=== PATIENT | male | born 1940 | race Caucasian/White ===

== ENCOUNTER → 2024-10-15 12:51 | Outpatient (REF) | payer MEDICARE, BC, SELFPAY | LOC: PAVMRI 12:51 | PROVIDERS: ATTENDING PHYSICIAN Physician Assistant; FAMILY PHYSICIAN Physician Assistant | DX: M47.816 Spondylosis without myelopathy or radiculopathy, lumbar region (principal) | CPT/HCPCS: 72148 ==

== ENCOUNTER 2025-07-27 01:34 | Inpatient (IN) | payer MEDICARE, BC, SELFPAY ==
[2025-07-26 22:34] VITALS: BP 185/88; BMI 23.7
[2025-07-26 22:40] VITALS: BP 185/88
[2025-07-26 23:00] VITALS: BP 163/72
[2025-07-27] VITALS (37 sets, daily range): BP systolic 116–187; BP diastolic 64–98; BMI 24.9
--- NOTE | 2025-07-27 00:50 | ED.GENMED ---
History of Present Illness
General
Chief Complaint: Musculo-Skeletal Complaint
Source: patient, spouse and family
Exam Limitations: none
Time Seen by Provider: 07/26/25 23:27
Nursing documentation reviewed up to this point in time: agreed with
History of Present Illness
History of Present Illness:
Note:
CHIEF COMPLAINT(S)
Ankle injury with possible fractures
HISTORY OF PRESENT ILLNESS
The patient is an 85-year-old male who reported sustaining an injury to his ankle after stepping on a box and twisting his ankle. This happened while he was leaving the bathroom. The patient described the event as causing his ankle to bend in the
opposite direction. He currently experiences significant pain, rating it at a level six when the ankle is moved. The patient conveyed understanding that his injury involved a fracture, noting that 'a break and a fracture is the same.' The doctor
explained that there are indications of a trimalleolar fracture and anterior subluxation of the ankle. The attending physician plans to administer sedation using propofol in order to realign the bone and apply a splint as a temporary measure until
the patient can undergo orthopedic surgery. The importance of maintaining blood flow and proper alignment to avoid complications was emphasized.
PAST MEDICAL AND SURIGICAL HISTORY
The patient mentions having undergone a colonoscopy with anesthesia but has no history of major surgeries or general anesthesia. Recently, he had an epidural for back pain, which he noted provided relief.
ADDITIONAL HISTORY OBTAINED FROM SOURCES OTHER THAN THE PATIENT
Per accompanying individuals, there is a consideration of admitting the patient for surgery due to his age and the logistics of transport.
SOCIAL DETERMINANTS AFFECTING HEALTH
The patient is retired, which may impact his activities of daily living following the injury.
PHYSICAL EXAM
General: Alert, no acute distress.
Skin: Warm, dry.
Head: Normocephalic, atraumatic.
Neck: Supple, trachea midline.
Eye Ears, nose, mouth and throat: Oral mucosa moist.
Cardiovascular: Normal peripheral perfusion, No edema.
Respiratory: Respirations are non-labored.
Gastrointestinal: Abdomen nondistended.
Back: Normal range of motion, Normal alignment.
Musculoskeletal: Noted injury and pain in the ankle region, otherwise normal ROM and strength in other areas.
Neurological: Alert and oriented to person, place, time, and situation, No focal neurological deficit observed.
Psychiatric: Cooperative, appropriate mood & affect.
PROBLEM LIST
Acute:
- Trimalleolar fracture with anterior subluxation of the ankle
- Ankle pain and swelling
PLAN
- Sedation with propofol for ankle reduction and splint application.
- Post-procedure follow-up x-ray to assess alignment.
- Coordination with orthopedic surgery for operative planning.
- Possible admission for surgical intervention based on consultation with orthopedics.
- Pain management and observation for any vascular complications post-reduction.
DIFFERENTIAL DIAGNOSIS
The Differential Diagnosis includes, in no particular order and is not limited to:
- Trimalleolar fracture-successfully reduced
- Bimalleolar fracture
- Ankle dislocation
- Tibial fracture
- Fibular fracture
- Ankle sprain
- Osteoarthritis exacerbation
- Gout affecting the ankle joint
- Severe contusion to the ankle
- Ligamentous injury in the ankle
Disposition:
SUMMARY OF ENCOUNTER
The patient, an 85-year-old male, presented with an ankle injury, specifically a trimalleolar fracture with associated anterior subluxation. The fracture was successfully reduced in the emergency department. Sedation was administered using propofol
to facilitate the procedure. The patient tolerated the reduction well. Due to the complexity of the fracture and the patients age, admission to the hospital service was considered necessary for further management and to coordinate care for eventual
orthopedic surgery.
DISPOSITION
Admit
ASSESSMENT
The patient sustained a trimalleolar fracture with anterior subluxation of the ankle, which was successfully reduced in the emergency department.
EMERGENCY TREATMENTS ADMINISTERED
Sedation with propofol for ankle reduction.
MANAGEMENT OF THE PATIENTS CARE WAS DISCUSSED WITH
Orthopedic surgery team.
PLAN
The patient will be admitted for further evaluation and management by the orthopedic team and for eventual surgical intervention.
PROCEDURES
Ankle reduction performed under sedation with propofol.
PATIENT EDUCATION AND COUNSELING
The patient was educated on the nature of the injury, the need for surgical intervention, and the importance of hospitalization for further management.
MEDICATION RECONCILIATION
Sedation with propofol was administered for the procedure.
MEDICAL DECISION MAKING
-Complexity of Data Reviewed: Chronic conditions affecting care include consideration of the patients age and recent epidural administration. Differential Diagnoses: Trimalleolar fracture, Bimalleolar fracture, Ankle dislocation, Tibial fracture,
Fibular fracture, Ankle sprain, Osteoarthritis exacerbation, Gout affecting the ankle joint, Severe contusion to the ankle, Ligamentous injury in the ankle.
-Data:
Category 1
External records reviewed: I reviewed the patients outpatient pharmacy records and noted the correction of the trimalleolar fracture. Clinical information was obtained from an independent historian. My independent interpretation of radiology
indicates a trimalleolar fracture with associated anterior subluxation.
Category 3
Discussion of management with the orthopedic surgery team, leading to the decision to admit the patient for further care.
DIAGNOSIS
Trimalleolar fracture with anterior subluxation of the ankle (ICD-10: S82.851A).
Phy Exam
Physical Exam
Physical Exam:
.
Course
Orders/Labs/Results
Orders:
Orders
07/26/25 22:53
CR Ankle - Right Min 3 Views * Urgent
Reason For Exam: deformity
07/26/25 23:48
Propofol [Diprivan] 20 ml .ROUTE .STK-MED
07/26/25 23:55
Propofol [Diprivan] 20 ml .ROUTE .STK-MED
07/27/25 00:22
CR Ankle - Right 2 Views Urgent
Comment:
Reason For Exam: REDUCTION
07/27/25 01:19
Admit/Transfer Patient As Directed
Co-Sign Provider:
Level of Care: Inpatient admission
Assign to:: Medical/Surgical
Physician / Group: Juan Carlos
Diagnosis: R trimalleolar fracture
Reason for Hospitalization: ambulatory dysfunction
Expected length of stay greater than two midnights?: Yes
ELOS- Estimated Length of Stay in days: 2
I certify the patient meets the requirements for IP care: Yes
Code Status As Directed
Resuscitation Status: Full Code
PRN Pain Medication Management As Directed
May give lesser potent ordered pain med per pt: Yes
preference::
Protocol:: Medication orders for pain may be administered in a
manner that supports deferring to patient preference
when the pt is:
- Requesting an ordered lesser potent pain medication.
Least to most potent pain medications are defined
as: acetaminophen < NSAID < tramadol < opioids
(morphine, oxycodone, hydromorphone).
- Requesting a lesser dose of the same medication IF
ORDERED.
- Requesting a less intrusive route of administration
if both routes are prescribed by the provider (PO <
IV).
07/27/25 02:56
HYDROmorphone [Dilaudid] 0.25 mg IV Q1HPRN PRN
Lactated Ringers [Lr] 1,000 ml IV 80 mls/hr
Magnesium Hydroxide [Milk of Magnesia] 30 ml PO DAILYPRN PRN
Oxycodone [Roxicodone] 5 mg PO Q4HPRN PRN
07/27/25 02:56
ORTHOPEDIC CONSULT Routine
Consulting Provider: Jayro Hardin
Was physician already notified: Yes
Reason for consult: R trimalleolar fracture
Activity As Directed
Activity Level: Bedrest
Bladder Scan As Directed
Follow Bladder Retention/Intermittent Cath Algorithm?: Yes
PRN if no void in __ hours: 6
Comment: if not voiding 6 hrs upon arrival to floor, bladder scan & follow algorithm
Intake/ Output As Directed
Frequency: Per unit guidelines
Pneumatic Compression Sleeves As Directed
Type: Knee high
Comment: apply to left leg
Straight Cath As Directed
Frequency: Per Retention Algorithm
Additional Instructions: straight cath as needed per acute urinary retention algorithm for 24 hrs
Additional Instructions: for bladder scan greater than 400 mL
Vital Signs As Directed
Frequency: Per unit guidelines
Weight Bearing Status As Directed
Weight bearing to: Right lower extremity
Type: Non Wt. bearing
DX Deep Vein Thrombosis Video Routine
07/27/25 04:00
Acetaminophen [Tylenol] 650 mg PO Q4HWA
07/27/25 Breakfast
NPO
Allow oral meds: Yes
Allow clear liquids: Sips of Clears
07/27/25 07:30
Sucralfate [Carafate] 1 gram PO ACHS
07/27/25 07:35
Basic Metabolic Panel IN AM
Complete Blood Count/With Diff IN AM
Magnesium IN AM
Prothrombin Time IN AM
07/27/25 08:00
Alprazolam [Xanax] 0.25 mg PO QID
Pantoprazole [Protonix] 40 mg PO DAILY
Tamsulosin [Flomax] 0.4 mg PO DAILY
07/27/25 20:00
Docusate Sodium [Colace] 100 mg PO BID
Sennosides [Senokot] 17.2 mg PO BID
Vital Signs
Initial and Last Documented VS:
Initial Vital Signs
Temp Pulse Resp BP
98 F 83 18 185/88
07/26/25 22:34 07/26/25 22:34 07/26/25 22:34 07/26/25 22:34
Last Documented Vital Signs
Temp Pulse Resp BP Pulse Ox
98.2 F 72 16 135/75 94
07/28/25 15:00 07/28/25 15:00 07/28/25 15:00 07/28/25 15:00 07/28/25 15:00
Procedures
Moderate Sedation
ASA Risk Score: Class II
Chart and allergies reviewed: Yes
Consent for anesthesia obtained: Yes
Time out completed (validating right patient & procedure): Yes
Moderate Sedation Start Time(when first medication is given): 12:08
History of difficult intubation: No
Airway free of obstruction: Yes
Patient has a gag reflex: Yes
Patient is able to open mouth: Yes
Patient has no dentures: Yes
Patient has no loose teeth: Yes
Medication administered by Provider during Moderate Sedation: IV Propofol (mg)
Total dose administered: 50
Time drug administered: 12:08
Moderate Sedation Procedure End Time: 00:23
Joint/Fracture Reduction
Right Ankle:
Indication for procedure:: Fracture dislocation of right ankle
Procedure completed by: Myself
Consent form signed: Yes
Joint reduced: with anesthesia sedation
Injury was: closed
Further treatement: needs further treatment
Post reduction exam: stable
Capillary Refill: normal
*Pulse Oximetry
SaO2: 97
Oxygen Mode of Delivery: Room air
Patient hypoxic: no
*Critical Care Note
Total Time (30-74mins, 75-104mins- exclusive of procedures): Not Applicable
Update Note
Update Note:
Trimalleolar fracture successfully reduced with the assistance of the PA under my direct and constant supervision.
ED Attending Note
-
Portions of this chart may have been created with voice recognition software.� Occasional wrong word or��sound alike� substitutions may have occurred due to the inherent limitations of voice recognition software.
Discharge Plan
Departure
Patient Disposition: Admit
Date of Disposition: 07/27/25
Time of Disposition: 00:52
Admit to: Telemetry
Presentation/result/management discussed w/ accepting MD/DO: Hospitalist
Discharge Problem:
Closed trimalleolar fracture of ankle, Moderate sedation
Interventions
Interventions:
*Risk Screen - Suicide Last Done: 07/26/25 22:34
*General Assessment Last Done: 07/26/25 22:34
*Neglect/Abuse Screening Last Done: 07/26/25 22:34
*ED- Fall Risk Assessment Last Done: 07/26/25 22:34
*ED COVID-19 Vaccine History Last Done: 07/27/25 03:15
*ED Influenza Vaccine History Last Done: 07/26/25 22:34
*Nursing Disposition Last Done: 07/27/25 02:52
ED-Musculoskeletal Assessment Last Done: 07/26/25 22:57
Discharge Date and Time
Discharge Date/Time: 07/27/25 02:53
--- NOTE | 2025-07-27 01:00 | HPS.HSE ---
Family Physician
-
Family Physician: Audrey Torres
Chief Complaint
-
Right leg injury
History of Present Illness
This is a 85-year-old with past medical history significant for proximal atrial fibrillation on anticoagulation with Xarelto, chronic back pain, BPH, GERD presenting to the emergency department after suffering a right ankle injury.
Patient was stepping out of his bathroom and then stepped on a box that he thought was solid but was not he ended up twisting his ankle and developing severe pain and swelling. He was brought into the emergency department for evaluation.
In the emergency department patient was afebrile, blood pressure 161/80 with a pulse of 65 he was satting 96% on room air. X-ray shows a right-sided trimalleolar fracture. This was successfully reduced in the emergency department and patient is
placed in a cast.
Medical History
Past Medical History
Past Medical History: Reports Arrhythmia (Paroxysmal atrial fibrillation), GERD and Psychiatric (Anxiety)
Past Surgical History: Reports Other
Social History
Tobacco: Non-smoker
Alcohol: None
Drug: None
Personal:
Living: With Family
Employment: Retired
Family History
Family History: Not pertinent
Allergies / Home Medications
Allergies reflects when Allergies were last updated in [facility].
Home Medications with original date entered in [facility]
Allergy/Medication List:
Xarelto 15 MG 1 tablet with food Orally Once a day Active
Protonix 40 MG 1 packet mixed with apple juice or applesauce Orally Once a day Active
Atorvastatin 10 mg tablet, 10 mg p.o. at bedtime
Alprazolam 0.25 mg tablets, 0.25 mg p.o. 4 times daily
Review of Systems
-
Constitutional: Reports No Symptoms
EENT: Reports No Symptoms
Respiratory: Reports No Symptoms
Cardiac: Reports No Symptoms
Abdomen/GI: Reports No Symptoms
: Reports No Symptoms
Musculoskeletal: Reports Joint Pain and Joint Swelling
Skin: Reports No Symptoms
Neurological: Reports No Symptoms
Endocrine: Reports No Symptoms
Hematologic/Lymphatic: Reports No Symptoms
Psych: Reports No Symptoms
Physical Exam
Vital Signs
Vital Signs
Temp Pulse Resp BP Pulse Ox
98.3 F 65 18 161/80 97
07/27/25 00:30 07/27/25 00:37 07/27/25 00:37 07/27/25 00:37 07/27/25 00:54
Physical Exam
General: Well Developed, Well Nourished and No Apparent Distress
HEENT: NormoCephalic, Moist mucous membranes and Atraumatic
Respiratory: Clear
Cardiac: S1/S2 and Regular Rhythm; No Murmur or Rub
GI: Soft, Non Tender, Non Distended and Normal Bowel Sounds; No Organomegaly
Rectal: Deferred by Provider
Musculoskeletal: No Clubbing, No Cyanosis, No Edema and Other (Right ankle and stabilizing cast. Pulses intact. Normal capillary refill.)
Skin: No Rash
Neuro: Nonfocal/grossly intact
Hematologic/Lymphatic: No Lymphadenopathy
Data Reviewed
-
Diagnostic Radiology: Image Personally Visualized and interpreted
Impression/Plan
-
IMPRESSION:
85-year-old with a history of paroxysmal atrial fibrillation on anticoagulation who presents with ankle injury after inadvertently stepping on a box and is found to have right-sided closed trimalleolar fracture status post reduction successfully.
PLAN:
Trimalleolar fracture
-Admit to MedSurg
-Pain control
-Hold Xarelto for today, last dose of Eliquis was today, previous to that the patient reported that he has been off Xarelto for last 3 days due to get an epidural on Friday
-Nonweightbearing pending orthopedic evaluation
-Orthopedic consulted and aware
-Obtain labs in a.m.
-NPO for now pending Ortho evaluation, d/w Dr. Hardin possible OR tomorrow but less likely given packed schedule
-PT, INR, chemistries and CBC in a.m.
- PT consult
Atrial fibrillation -patient with steady rate control
-Hold Xarelto for now
-And no need for rate control and patient's not taking any at home
-GERD
- continue Protonix daily
- Continue Carafate
BPH
- Continue tamsulosin
Anxiety
- Continue alprazolam 0.25 4 times daily
CODE STATUS�full code
[2025-07-27] MEDS: LR 1000 IV ×2 (03:59→18:18)
[2025-07-27] MEDS: TYLENOL 650 MG PO ×3 (03:59→17:28)
--- NOTE | 2025-07-27 04:00 | PTCARENOTE ---
Received patient from ED via stretcher. Patient pulled over from stretcher to bed, NWB to RLE. AAOx3, reports 2/10 burning pain to R ankle. Scheduled tylenol given. Oriented patient to room and placed call davies within reach.
--- NOTE | 2025-07-27 07:52 | CON.ORTHO ---
Consultation
-
Date/Time Consultation Requested: 07/27/2025; time unknown
Date/Time Consultation Performed: 07/27/2025l; 0715
Requesting Provider: Unknown
Performing Provider: Svaana Wheeler PA-C for Dr. Jayro Hardin
Reason for Consultation: Right trimalleolar ankle fracture
Consultation - Orthopedics
History
Mr. Metzger is an 85 year old male with PMH of atrial fibrillation on anticoagulation with Xarelto, chronic back pain, BPH, GERD seen today for his right ankle. He reports he was going to the bathroom and didn't see a box that he had left out for his
cats. He reports he tripped on the box and rolled his ankle. He reports he noticed immediate pain and deformity about the ankle, and was unable to bear weight. This prompted him to be seen at ED. X-rays revealed a trimalleolar ankle fracture
dislocation. This was successfully reduced and splinted in the emergency department. He is resting comfortably in bed this morning, and denies any significant pain at present. He denies pain elsewhere.
He lives independently at home. He reports he typically ambulates without assistance at baseline. He denies PMH of DVT, CVA, TX or DM. He denies past surgical history and denies any known family history of difficulty with anesthesia.
Allergies / Home Medications
Allergy/AdvReac Type Severity Reaction Status Date / Time
No Known Allergies Allergy Unverified 07/27/25 03:46
Vital Signs / Lab Results
Temp Pulse Resp BP Pulse Ox
98.2 F 60 24 162/75 98
07/27/25 03:00 07/27/25 04:04 07/27/25 03:00 07/27/25 04:04 07/27/25 04:00
XR of the right ankle reveals a trimalleolar fracture dislocation.
Repeat x-rays reveals successful reduction and splinting of ankle fracture dislocation.
Directed exam of the right lower extremity reveals splint in place. Good color and warmth of toes. Patient able to wiggle toes. Sensation intact to light touch above and below splint.
Assessment / Plan
Right trimalleolar ankle fracture
--Unfortunately, Binu sustained a trimalleolar fracture dislocation. The dislocation was successfully reduced in the emergency department, but given the unstable nature of his injury I recommend proceeding with open reduction internal fixation of
his fracture. The risks, benefits, alteratives, recovery process and potential complications were discussed in detail. He verbalized understanding and would like to proceed with surgery. Surgical and blood consent signed and placed on patient chart.
We are hoping to proceed with OR today pending OR availability.
--NPO for now pending OR availability.
--Maintain splint to RLE. NWB to RLE until surgery.
--Pain control prn.
--Ice and elevation for pain and edema control.
--Orthopedics will continue to follow along.
[2025-07-27] MEDS: XANAX 0.25 MG PO ×4 (07:59→21:31)
[2025-07-27] MEDS: PROTONIX 40 MG PO (08:00)
[2025-07-27] MEDS: CARAFATE 1 GRAM PO ×4 (08:00→21:31)
[2025-07-27 08:03] LABS: Hematocrit 37.3 % (39.0-52.0); Hemoglobin 12.7 g/dL (13.0-18.0); Mean Corp Hgb Conc. 34.0 g/dL (33.0-37.0); Mean Corpuscular Volume 90.1 fL (80.0-94.0); Nucleated Red Blood Cells % 0 % (-); Platelet Count 172 10^3/uL (130-400); Red Cell Dist. Width 15.8 % (11.5-14.5)
[2025-07-27 08:14] LABS: INR 1.68; PT 20.3 Sec (11.4-14.6)
[2025-07-27 08:37] LABS: Blood Urea Nitrogen 30 mg/dl (9-20); Calcium 8.9 mg/dl (8.4-10.2); Carbon Dioxide 22 mmol/L (22-30); Chloride 110 mmol/L (98-107); Estimated Creatinine Clearance 35 ml/min; Glucose 110 mg/dl (70-99); Magnesium 1.9 mg/dl (1.6-2.3); Potassium 4.0 mmol/L (3.5-5.1); Sodium 140 mmol/L (135-145); eGFR 44.78
[2025-07-27] MEDS: FLOMAX 0.4 MG PO (12:07)
[2025-07-27] MEDS: TYLENOL PO ×3 (12:11→23:13)
[2025-07-27] MEDS: ROXICODONE 10 MG PO ×2 (12:19→19:51)
[2025-07-27] MEDS: APRESOLINE 10 MG IV (12:20)
--- NOTE | 2025-07-27 12:22 | W.PN.UPDATE ---
Update Note
Progress Note Update
Nonbillable note
1. Right ankle trimalleolar fracture -orthopedic surgery evaluated and patient plan to be taken to the OR for surgical fixation. Pain medication adjusted. Patient benefits of surgery outweighs the risk and appropriate for surgery. No current
active cardiopulmonary complaints
2. Paroxysmal atrial fibrillation -history of ablation 2 years back. Follows up with [facility]. Routine preoperative EKG has been ordered. Patient takes Xarelto at home, currently on hold okay to be resumed postsurgery after
orthopedic cleared
--- NOTE | 2025-07-27 15:07 | CM ---
IA completed with the assistance of . Lives with in apartment [place]. Independent in ADLs and IADLs. No hx of HH, SNF or home O2. Has DME: standing walker, SPC, lightweight wheelchair at home but looking for a more
sturdy chair for his post-op experience. NO insecurities identified. Confirmed PCP, Rx , insurance, and drug coverage.
Having surgery for ankle fracture today
PCP: Irene Torres
Rx: [facility]
Plan: TBD post - op
[2025-07-27] MEDS: ANCEF 5 IV ×2 (18:16→23:12)
[2025-07-27] MEDS: XARELTO 15 MG PO (18:17)
--- NOTE | 2025-07-27 18:49 | PTCARENOTE ---
pt transferred from OR. Pt AAOx3 and pleasant. No c/o pain. Right popiteal pulse is palpable, good sensation and movement to R toes. Leg elevated on pillows. safety measures in place, call davies within reach.
[2025-07-27] MEDS: SENOKOT PO (19:54)
[2025-07-27] MEDS: COLACE PO (19:54)
[2025-07-28] VITALS (7 sets, daily range): BP systolic 129–165; BP diastolic 66–106; PULSE 84; O2SAT 96
[2025-07-28] MEDS: TYLENOL PO ×5 (05:08→20:01)
[2025-07-28] MEDS: LR 1000 IV (06:20)
--- NOTE | 2025-07-28 07:42 | W.PN.ORTHO ---
Today's Communication / Plan
-
PT/OT
Splint in place right lower extremity at all times
Strict nonweightbearing right lower extremity
Ice with elevation above level of heart to control swelling and pain
Follow-up in orthopedic office 2 weeks postop for skin clip removal and x-ray
Patient is orthopedically stable for discharge today
Orthopedics to sign off for now
Assessment
.
Distal Motor Intact: Yes
Dressing:
Splint clean, dry and intact.
Plan
.
Surgery / Date: ORIF trimalleolarfx 07/27 Ritting
DVT Prophylaxis: Other (Xarelto)
Activity:
Out of bed.
PT/OT
Discharge Plan: Home and Home w/ VN
Subjective
.
.:
Patient resting comfortably.
Vital Signs and Labs
.
Vital Signs and Labs:
Temp Pulse Resp BP Pulse Ox
98.6 F 74 18 129/66 96
07/28/25 03:19 07/28/25 03:19 07/28/25 03:19 07/28/25 03:19 07/28/25 03:19
PT 20.3 Sec (11.4-14.6) H 07/27/25 07:35
INR 1.68 07/27/25 07:35
[2025-07-28] MEDS: CARAFATE 1 GRAM PO ×4 (08:16→21:22)
[2025-07-28] MEDS: XANAX 0.25 MG PO ×4 (08:17→21:22)
[2025-07-28] MEDS: PROTONIX 40 MG PO (08:17)
[2025-07-28] MEDS: SENOKOT 17.2 MG PO (08:19)
[2025-07-28] MEDS: COLACE 100 MG PO (08:19)
[2025-07-28 08:23] LABS: Hematocrit 34.9 % (39.0-52.0); Hemoglobin 12.1 g/dL (13.0-18.0)
[2025-07-28] MEDS: ROXICODONE 10 MG PO ×2 (08:25→12:30)
[2025-07-28 08:43] LABS: Blood Urea Nitrogen 24 mg/dl (9-20); Calcium 8.5 mg/dl (8.4-10.2); Carbon Dioxide 23 mmol/L (22-30); Chloride 109 mmol/L (98-107); Estimated Creatinine Clearance 37 ml/min; Glucose 118 mg/dl (70-99); Potassium 4.1 mmol/L (3.5-5.1); Sodium 137 mmol/L (135-145); eGFR 48.65
[2025-07-28] MEDS: FLOMAX 0.4 MG PO (11:51)
--- NOTE | 2025-07-28 14:41 | W.PN.HOSP.TC ---
Today's Communication/Plan
-
d/c planning for rehab
Assessment / Plan
Assessment / Plan
Right ankle Trimalleolar fracture
-s/p ORIF by ortho on 07/27
-patient to f/u in office in 2 weeks
-maintain on pain meds
-awaiting PT evaluation and possibly will need rehab placement
Paroxysmal Atrial fibrillation
h/o of ablation
-resumed back on xarelto
-not on rate control medication
-GERD
- continue Protonix daily
- Continue Carafate
BPH
- Continue tamsulosin
Anxiety
- Continue alprazolam 0.25 4 times daily
CODE STATUS�full code
Anticipated Discharge: Within 24 hours
Subjective/Interval History
-
Date of Service: July 28, 2025
no complains overnight
denies having chest pain/shortness breath
not constipated
Objective Data
-
Labs:
Laboratory Results
07/28/25
07:56
Hgb 12.1 L
Hct 34.9 L
Sodium 137
Potassium 4.1
Chloride 109 H
Carbon Dioxide 23
BUN 24 H
Creatinine 1.4 H
Glucose 118 H
Calcium 8.5
Vital Signs:
Vital Signs
Temp Pulse Resp BP Pulse Ox
98.1 F 84 18 158/85 96
07/28/25 11:00 07/28/25 11:00 07/28/25 11:00 07/28/25 11:00 07/28/25 11:00
I&O
07/27/25 07/28/25 07/29/25
06:59 06:59 06:59
Intake Total 240 / 240 315 / 315
Output Total 295 / 295 700 / 700
Balance -55 / -55 -385 / -385
Review of Systems
-
Respiratory: Reports No Symptoms
Cardiac: Reports No Symptoms
Abdomen/GI: Reports No Symptoms
Physical Exam
-
General: No Apparent Distress and Comfortable
HEENT: Negative Oxygen
GI: Soft and Nontender
Neuro: Awake, Alert, Oriented, No Motor Deficits and Nonfocal/Grossly Intact
Psych: Calm
--- NOTE | 2025-07-28 15:44 | CM ---
Acute rehab referral sent via [facility].
[2025-07-28] MEDS: ROXICODONE 5 MG PO ×2 (17:03→21:25)
[2025-07-28] MEDS: XARELTO 15 MG PO (17:04)
--- NOTE | 2025-07-28 17:15 | CM ---
IMM given. Post-op pain management ongoing.
PT and OT recommend acute rehab. Discussed levels of care provided at acute rehab vs, SNF vs HH vs O/P therapy. given SNF resources to review and select 3-5 facilities iin the event the pt doesn't qualify for acute Rehab.
Plan: acute rehab vs snf
[2025-07-28] MEDS: SENOKOT PO (20:01)
[2025-07-28] MEDS: COLACE PO (20:01)
[2025-07-29] MEDS: TYLENOL PO ×2 (00:19→05:28)
[2025-07-29] MEDS: ROXICODONE 5 MG PO ×5 (02:49→22:22)
[2025-07-29] MEDS: MILK OF MAGNESIA 30 ML PO (02:52)
[2025-07-29 07:41] VITALS: BP 178/88
[2025-07-29] MEDS: CARAFATE 1 GRAM PO ×4 (07:57→21:04)
[2025-07-29] MEDS: COLACE 100 MG PO ×2 (08:42→20:22)
[2025-07-29] MEDS: SENOKOT 17.2 MG PO ×2 (08:42→20:22)
[2025-07-29] MEDS: TYLENOL 650 MG PO ×4 (08:42→20:22)
[2025-07-29] MEDS: XANAX 0.25 MG PO ×4 (08:42→21:04)
[2025-07-29] MEDS: PROTONIX 40 MG PO (08:42)
--- NOTE | 2025-07-29 10:47 | CM ---
Reviewed Chart. Met with pt and bedside; Informed them that the pt was denied acute rehab to [facility]. and pt provided the following SNF choices for SNF referrals in order of priority: [facility], [facility], [facility] and [facility].
[facility] to [facility]. Pt has only been here for 2 days. If bed is available today, pt will have to private pay for SNF care. Referrals sent.
Plan: TBD
[2025-07-29] MEDS: DULCOLAX 10 MG PO (11:20)
--- NOTE | 2025-07-29 12:20 | W.PN.HOSP.TC ---
Addendum entered and electronically signed by Ulises Coffey MD 07/30/25 17:26:
Add on to diagnosis list
CKDIIIA
Original Note:
Today's Communication/Plan
-
d/c planning for snf rehab
Assessment / Plan
Assessment / Plan
Right ankle Trimalleolar fracture
-s/p ORIF by ortho on 07/27
-patient to f/u in office in 2 weeks
-maintain on pain meds
-awaiting PT evaluation and possibly will need rehab placement
Paroxysmal Atrial fibrillation
h/o of ablation
-resumed back on xarelto
-not on rate control medication
-GERD
- continue Protonix daily
- Continue Carafate
BPH
- Continue tamsulosin
Anxiety
- Continue alprazolam 0.25 4 times daily
Narcotic induced constipation
- Dulcolax ordered
- Will need to use suppository if not improved
Elevated blood pressure
- No formal diagnosis of hypertension
- Providing Procardia 30 mg daily for now
- As needed hydralazine in place for greater than 160 SBP
CODE STATUS�full code
Anticipated Discharge: Today
Subjective/Interval History
-
Date of Service: July 29, 2025
No new issues overnight
Feeling constipated
Objective Data
-
Vital Signs:
Vital Signs
Temp Pulse Resp BP Pulse Ox
98.2 F 76 16 178/88 96
07/29/25 07:41 07/29/25 07:41 07/29/25 07:41 07/29/25 07:41 07/29/25 10:27
I&O
07/28/25 07/29/25 07/30/25
06:59 06:59 06:59
Intake Total 315 / 315 960 / 960
Output Total 700 / 700 1335 / 1335
Balance -385 / -385 -375 / -375
Review of Systems
-
Respiratory: Reports No Symptoms
Cardiac: Reports No Symptoms
Abdomen/GI: Reports Constipated; Denies Abdominal Pain
Physical Exam
-
General: No Apparent Distress and Comfortable
HEENT: Negative Oxygen
GI: Soft and Nontender
Neuro: Awake, Alert, Oriented, No Motor Deficits and Nonfocal/Grossly Intact
Psych: Calm
[2025-07-29] MEDS: PROCARDIA XL (EXTENDED RELEASE) 30 MG PO (12:26)
[2025-07-29] MEDS: FLOMAX 0.4 MG PO (12:26)
[2025-07-29 12:38] VITALS: BP 177/91; PULSE 90; O2SAT 98
--- NOTE | 2025-07-29 13:51 | CM ---
Addendum entered by Crystal Naik 07/29/25 13:58:
Transport papers completed,
Original Note:
Reviewed chart. Met with and pt. Pt was denied for acute rehab. provided 4 choices for SNF referrals: [facility], [facility], [facility], and [place]. [facility] is [facility]. [facility] accepted patient who will be
discharged tomorrow morning via ambulance (wheelchair rate). Pt is non-weight bearing on R leg.
Plan: DC to [facility] on 07-30-25. Has 11AM pickup time
[facility]
Report: [phone]
[2025-07-29 14:15] VITALS: BP 177/91; PULSE 89; O2SAT 98
[2025-07-29 15:26] VITALS: BP 113/62
--- NOTE | 2025-07-29 15:31 | PN.CDI ---
CDI
- -
CDI:
Physician Documentation Request
Admit Date: 07/27/25 01:34
Dear Doctor Alexx,
Please review the following and provide your response in the progress notes.
Clinical Indicators:
- Patient admit for Right ankle Trimalleolar fracture
- 3L IVF given
- No pmh of CKD
- Current renal labs
Laboratory Tests
07/27/25 07/28/25
07:35 07:56
Creatinine 1.5 H 1.4 H
eGFR 44.78 48.65
Please clarify which of the following accurately represents the patient's renal status:
SVETLANA
CKD 3
Other (please specify)
Criteria for SVETLANA*
1 Increase in serum creatinine by > or = to 0.3 mg/dL (> or = to 26.5 micromol/L) within 48 hours, OR
2 Increase in serum creatinine to > or = to 1.5 times baseline, which is known or presumed to have occurred within 7 days, OR
3 Urine volume < 0.5 nL/kg/hour for six hours
Stages of Chronic Kidney Disease*
Level Description GFR
G1 Normal or High >90
G2 Mildly decreased 60-89
G3a Mildly to moderately decreased 45-59
G3b Moderately to severely decreased 30-44
G4 Severely decreased 15-29
G5 Kidney failure <15
Use of terms such as suspected, likely, concern for, or probable (associated with a specific diagnosis that is being evaluated, monitored, or treated as if it exists) are acceptable and can be coded in the inpatient setting, when documented at the
time of discharge.
Thank you,
Donovan Adam RN
CDI Specialist
Please use your independent medical judgment in providing your response.
*Source: Kidney Disease: Improving Global Outcomes (KDIGO) 2012
[2025-07-29] MEDS: XARELTO 15 MG PO (18:02)
[2025-07-29 23:24] VITALS: BP 141/72
[2025-07-30] MEDS: TYLENOL 650 MG PO ×3 (00:08→08:32)
[2025-07-30 07:00] VITALS: BP 186/96
[2025-07-30] MEDS: CARAFATE 1 GRAM PO (07:34)
[2025-07-30] MEDS: XANAX 0.25 MG PO (08:32)
[2025-07-30] MEDS: SENOKOT 17.2 MG PO (08:32)
[2025-07-30] MEDS: COLACE 100 MG PO (08:32)
[2025-07-30] MEDS: PROCARDIA XL (EXTENDED RELEASE) 30 MG PO (08:32)
[2025-07-30] MEDS: PROTONIX 40 MG PO (08:32)
[2025-07-30] MEDS: ROXICODONE 5 MG PO (09:59)
[2025-07-30] MEDS: FLUZONE HIGH-DOSE 2025-26 0.5 ML IM (10:09)
[2025-07-30 10:44] VITALS: BP 162/90
--- NOTE | 2025-07-30 15:47 | W.DCSUMMARY ---
Discharge Summary
Discharge Data
Date of Admission: 07/27/25
Date of Discharge: 07/30/25
-
Pending Results: No
Hospital Course
Discharging Physician : Dr Ulises Coffey
Disposition : To homr
Primary care physician :
Principal Discharge diagnosis :
Right ankle trimalleolar fracture
Elevated blood pressure
Chronic Discharge diagnosis :
Paroxysmal atrial fibrillation on anticoagulation
History of ablation
Gastroesophageal liver disease
Benign prostatic hyperplasia
Generalized anxiety disorder
Physical examination:
HEENT: moist mucus membrane
Chest: Clear to auscultation
Heart: N s1/s2, RRR
Abd: N BS, soft, nontender, nondistended, no organomegaly
Neuro: No motor or sensory deficits
Ext: right leg dressing in palce
Hospital Course :
Patient is 85-year-old male with admission past medical history came to ER after having a trip and fall at home. Patient ended up having right ankle injury and pain. In ER x-ray showing right sided trimalar fracture which was successfully reduced
in the emergency department and limb was placed in a cast. Orthopedic surgery was involved in care who recommended an internal fixation. Patient underwent uneventful open reduction internal fixation of right trimalar ankle fracture. Postprocedure
course was uncomplicated. Patient was started back on Xarelto. Patient was noted to having elevated blood pressure although does not have a formal diagnosis of hypertension. Patient was started on Procardia which can be possibly discontinued if
blood pressure normalizes postdischarge. Patient was evaluated by physical therapy and was deemed appropriate for SNF rehab placement.
Important imaging findings :
None
Procedure findings :
None
Discharge Plan
-
Patient Disposition: Alf/SNF
Discharge Diagnosis/Procedures: Right ankle malleolar fracture
Condition: Fair
Diet: Regular
Activity: As tolerated
Driving Restrictions: No driving
Bathing Restrictions: OK to Shower
Activity Restrictions/Additional Instructions:
Splint in place right lower extremity at all times
Strict nonweightbearing right lower extremity
Ice with elevation above level of heart to control swelling and pain
Follow-up in orthopedic office 2 weeks postop for skin clip removal and x-ray
Referrals:
Audrey Torres PA-C [Family Provider, General] - in one week
Jayro Hardin MD [Active, Orthopedics] - in two weeks
Prescriptions:
New
sucralfate 1 gram Tablet
1 g PO ACHS Qty: 120 0RF
nifedipine 30 mg Tablet Extended Release
30 mg PO DAILY Qty: 30 0RF
tamsulosin 0.4 mg Capsule
0.4 mg PO DAILY@1200 Qty: 30 0RF
pantoprazole 40 mg Tablet,Delayed Release (Dr/Ec)
40 mg PO DAILY Qty: 30 0RF
docusate sodium 100 mg Capsule
100 mg PO BID Qty: 60 0RF
oxycodone 10 mg Tablet
10 mg PO Q4HPRN PRN (Reason: sev pain) Qty: 14 0RF
Rx Instructions:
Take half tablet for moderate pain
alprazolam 0.25 mg Tablet
0.25 mg PO QID PRN (Reason: Anxiety) Qty: 12 0RF
Xarelto 15 mg Tablet
15 mg PO QPM Qty: 30 0RF
Discharge Orders:
Discharge Patient (As Directed); Ordered 07/30/25
Ordered By: Ulises Coffey
Discharge Date and Time
Discharge Date/Time: 07/30/25 11:10
Print Language: EGYPTIAN
== END 2025-07-30 11:10 | DRG 494 ==
LOC: 4 EAST ACU 01:34
PROVIDERS: Student in an Organized Health Care Education/Training Program; ADMITTING PHYSICIAN Internal Medicine; ATTENDING PHYSICIAN Hospitalist; CONSULT PHYSICIAN Orthopaedic Surgery Hand Surgery; EMERGENCY PHYSICIAN Student in an Organized Health Care Education/Training Program; FAMILY PHYSICIAN Physician Assistant
PROC: 0QSG04Z Reposition Right Tibia with Internal Fixation Device, Open Approach (ICD-10-PCS; 2025-07-27)
DX: S82.851A Displaced trimalleolar fracture of right lower leg, initial encounter for closed fracture (principal); I48.0 Paroxysmal atrial fibrillation; K21.9 Gastro-esophageal reflux disease without esophagitis; N40.0 Benign prostatic hyperplasia without lower urinary tract symptoms; F41.9 Anxiety disorder, unspecified; N18.31 Chronic kidney disease, stage 3a; X50.1XXA Overexertion from prolonged static or awkward postures, initial encounter; Z79.01 Long term (current) use of anticoagulants; Z79.899 Other long term (current) drug therapy
CPT/HCPCS: 27818; 73600; 73610; 80048; 83735; 85014; 85018; 85025; 85610; 90662; 93005; 97116; 97163; 97167; 97530; 97535; 99152; 99285; C1713; C1769; G0008